=== PATIENT | female | born 1945 | race Caucasian/White ===

== ENCOUNTER 2022-09-05 11:13 | Inpatient (IN) | payer MEDICARE ==
[~2022-09-05] VITALS: Ht 162.6 cm; Wt 40.8 kg
[2022-09-05 12:36] LABS: BASOPHILS # (AUTO) 0.1 (0.0-0.1); BASOPHILS % 0.4 % (0.0-1.0); EOSINOPHILS % 0.1 % (0.0-6.0); HEMATOCRIT 38.9 % (34.2-44.1); HEMOGLOBIN 12.4 g/dL (12.0-16.0); LYMPHOCYTES # (AUTO) 1.5 (1.0-3.2); LYMPHOCYTES % 6.8 % (18.0-39.1); MEAN CORPUSCULAR HEMOGLOBIN 31.8 pg (28-32); MEAN CORPUSCULAR HGB CONC 31.9 g/dL (31-35); MEAN CORPUSCULAR VOLUME 99.7 fL (81-99); MONOCYTES % 4.4 % (4.4-11.3); NEUTROPHILS % 87.9 % (38.7-80.0); PLATELET COUNT 396 x10e3/uL (140-360); RED CELL DISTRIBUTION WIDTH 14.2 % (11.7-14.4)
[2022-09-05 12:51] LABS: CLARITY,URINE SL CLOUDY (CLEAR); COLOR,URINE YELLOW (YELLOW); KETONES,URINE TRACE (NEGATIVE); LEUKOCYTE ESTERASE ,URINE NEGATIVE (NEGATIVE); NITRITE,URINE NEGATIVE (NEGATIVE); PROTEIN,URINE DIPSTICK 1+ (NEGATIVE); URINE UROBILINOGEN 1 mg/dL (0.2 - 1)
[2022-09-05 12:58] LABS: ALBUMIN 3.3 g/dL (3.5-5.0); ALBUMIN/GLOBULIN RATIO 0.7 (0.8-2.0); CALCIUM 10.1 mg/dL (8.4-10.2); CREATININE, SERUM 0.7 mg/dL (0.57-1.11)
[2022-09-05 13:09] LABS: BACTERIA,URINE FEW /HPF; EPITHELIAL CELLS,URINE MODERATE /LPF
[2022-09-05] MEDS ORDERED: SODIUM CHLORIDE 0.9% 1000ML 1,000 ML IV SCH (13:45)
[2022-09-05] MEDS ORDERED: LEVOFLOXACIN 750MG/D5W 150ML 150 ML IV SCH (14:00)
[2022-09-05] MEDS: SODIUM CHLORIDE 0.9% 1000ML 1,000 ML IV SCH (15:24)
[2022-09-05 16:00] VITALS: BP 103/64
[2022-09-05 16:09] VITALS: BP 103/64
[2022-09-05] MEDS ORDERED: SYNTHROID50 MCG PO (18:13)
[2022-09-05] MEDS ORDERED: VITAMIN D350 MCG PO (18:13)
[2022-09-05] MEDS ORDERED: NAMENDA10 MG PO (18:13)
[2022-09-05] MEDS ORDERED: FLINTSTONES CO1 EACH PO (18:13)
[2022-09-05] MEDS ORDERED: BIOTIN2500 MCG PO (18:13)
[2022-09-05] MEDS ORDERED: REMERON30 MG PO (18:13)
[2022-09-05] MEDS ORDERED: FLORASTOR250 MG PO (18:13)
[2022-09-05] MEDS ORDERED: [UNRECOGNIZED DRUG - OTHER] PO (18:13)
[2022-09-05] MEDS ORDERED: ACETAMINOPHEN 325 MG TAB PO PRN (18:30)
[2022-09-05] MEDS ORDERED: ONDANSETRON HCL INJ 2MG/ML 2ML 2 MG/ML VIAL IV PRN (18:30)
[2022-09-05] MEDS ORDERED: BENZONATATE 100 MG CAP PO PRN (18:30)
[2022-09-05] MEDS ORDERED: ALBUTEROL/IPRATROPIUM 3 ML NEB NEB PRN (18:30)
[2022-09-05 20:00] VITALS: BP 126/67
[2022-09-05] MEDS: MIRTAZAPINE 15 MG TAB PO SCH (22:33)
[2022-09-06] VITALS (7 sets, daily range): BP systolic 104–119; BP diastolic 47–58
[2022-09-06] MEDS: SODIUM CHLORIDE 0.9% 1000ML 1,000 ML IV SCH ×2 (01:54→14:25)
[2022-09-06 06:15] LABS: BASOPHILS % 0.2 % (0.0-1.0); EOSINOPHILS % 0.1 % (0.0-6.0); HEMATOCRIT 29.9 % (34.2-44.1); HEMOGLOBIN 9.7 g/dL (12.0-16.0); LYMPHOCYTES # (AUTO) 1.7 (1.0-3.2); LYMPHOCYTES % 9.9 % (18.0-39.1); MEAN CORPUSCULAR HEMOGLOBIN 31.8 pg (28-32); MEAN CORPUSCULAR HGB CONC 32.4 g/dL (31-35); MONOCYTES # (AUTO) 0.8 (0.2-0.8); MONOCYTES % 4.9 % (4.4-11.3); NEUTROPHILS # (AUTO) 14.4 (2.1-6.9); NEUTROPHILS % 84.4 % (38.7-80.0); PLATELET COUNT 340 x10e3/uL (140-360); RED BLOOD COUNT 3.05 x10e6/uL (3.6-5.1); RED CELL DISTRIBUTION WIDTH 14.1 % (11.7-14.4)
[2022-09-06 06:40] LABS: ANION GAP 14.4 mmol/L (8-16); CALCIUM 8.8 mg/dL (8.4-10.2); POTASSIUM 3.4 mmol/L (3.5-5.1)
[2022-09-06 06:58] LABS: CREATININE, SERUM 0.6 mg/dL (0.57-1.11)
[2022-09-06] MEDS: MEMANTINE 10 MG TAB PO SCH ×2 (09:04→16:35)
[2022-09-06] MEDS ORDERED: IOPAMIDOL 370 MG/ML 100 ML INFUS..BTL INJ ONE (10:33)
[2022-09-06] MEDS: [UNRECOGNIZED DRUG - OTHER] PO SCH ×2 (12:00→16:35)
[2022-09-06] MEDS: LEVOTHYROXINE SODIUM 50 MCG TAB PO SCH (19:25)
[2022-09-06] MEDS: METRONIDAZOLE 500MG/NS 100ML 100 ML IV SCH (20:29)
[2022-09-06] MEDS: MIRTAZAPINE 15 MG TAB PO SCH (20:40)
[2022-09-07] VITALS (10 sets, daily range): BP systolic 107–148; BP diastolic 50–78
[2022-09-07] MEDS: LEVOTHYROXINE SODIUM 50 MCG TAB PO SCH (05:08)
[2022-09-07] MEDS: SODIUM CHLORIDE 0.9% 1000ML 1,000 ML IV SCH ×2 (05:08→18:28)
[2022-09-07] MEDS: METRONIDAZOLE 500MG/NS 100ML 100 ML IV SCH ×3 (05:08→18:28)
[2022-09-07 05:47] LABS: BASOPHILS # (AUTO) 0.1 (0.0-0.1); BASOPHILS % 0.3 % (0.0-1.0); EOSINOPHILS % 0.1 % (0.0-6.0); HEMATOCRIT 31.4 % (34.2-44.1); HEMOGLOBIN 10.2 g/dL (12.0-16.0); LYMPHOCYTES # (AUTO) 1.4 (1.0-3.2); LYMPHOCYTES % 7.2 % (18.0-39.1); MEAN CORPUSCULAR HEMOGLOBIN 31.9 pg (28-32); MEAN CORPUSCULAR HGB CONC 32.5 g/dL (31-35); MEAN CORPUSCULAR VOLUME 98.1 fL (81-99); MONOCYTES % 4.9 % (4.4-11.3); NEUTROPHILS # (AUTO) 16.9 (2.1-6.9); NEUTROPHILS % 86.6 % (38.7-80.0); PLATELET COUNT 359 x10e3/uL (140-360); RED CELL DISTRIBUTION WIDTH 14.1 % (11.7-14.4)
[2022-09-07 06:09] LABS: ANION GAP 12.2 mmol/L (8-16); CALCIUM 8.8 mg/dL (8.4-10.2); CREATININE, SERUM 0.58 mg/dL (0.57-1.11); POTASSIUM 3.2 mmol/L (3.5-5.1)
[2022-09-07 06:20] LABS: THYROID STIMULATING HORMONE 0.972 uIU/mL (0.350-4.940)
[2022-09-07] MEDS: [UNRECOGNIZED DRUG - OTHER] PO SCH ×3 (08:00→17:00)
[2022-09-07] MEDS: MEMANTINE 10 MG TAB PO SCH ×2 (09:04→17:00)
[2022-09-07] MEDS: BALSAM PERU/CASTOR OIL 60 GM OINT...G. TP SCH (09:05)
[2022-09-07] MEDS ORDERED: ONDANSETRON HCL 4 MG ORAL DISINTEGRATING TAB PO PRN (13:45)
[2022-09-07] MEDS: MIRTAZAPINE 15 MG TAB PO SCH (21:00)
[2022-09-08 01:05] VITALS: BP 105/57
[2022-09-08] MEDS: METRONIDAZOLE 500MG/NS 100ML 100 ML IV SCH ×2 (01:57→10:01)
[2022-09-08 04:23] VITALS: BP 114/71
[2022-09-08 05:34] LABS: ANION GAP 14.6 mmol/L (8-16); CREATININE, SERUM 0.61 mg/dL (0.57-1.11); POTASSIUM 3.6 mmol/L (3.5-5.1)
[2022-09-08 05:44] LABS: BASOPHILS # (AUTO) 0.1 (0.0-0.1); BASOPHILS % 0.3 % (0.0-1.0); EOSINOPHILS % 0.2 % (0.0-6.0); HEMATOCRIT 34.2 % (34.2-44.1); HEMOGLOBIN 10.9 g/dL (12.0-16.0); LYMPHOCYTES % 5.3 % (18.0-39.1); MEAN CORPUSCULAR HEMOGLOBIN 31.5 pg (28-32); MEAN CORPUSCULAR HGB CONC 31.9 g/dL (31-35); MEAN CORPUSCULAR VOLUME 98.8 fL (81-99); MONOCYTES # (AUTO) 0.8 (0.2-0.8); MONOCYTES % 4.3 % (4.4-11.3); NEUTROPHILS # (AUTO) 17.5 (2.1-6.9); NEUTROPHILS % 89.4 % (38.7-80.0); PLATELET COUNT 371 x10e3/uL (140-360); RED BLOOD COUNT 3.46 x10e6/uL (3.6-5.1); RED CELL DISTRIBUTION WIDTH 14.2 % (11.7-14.4)
[2022-09-08] MEDS: LEVOTHYROXINE SODIUM 50 MCG TAB PO SCH (06:15)
[2022-09-08] MEDS: SODIUM CHLORIDE 0.9% 1000ML 1,000 ML IV SCH ×2 (06:15→16:38)
[2022-09-08 08:05] VITALS: BP 138/86
[2022-09-08] MEDS: MEMANTINE 10 MG TAB PO SCH ×2 (09:00→16:37)
[2022-09-08] MEDS ORDERED: MORPHINE SULFATE ORAL SOLN 10 MG/5 ML UDC PO PRN (09:00)
[2022-09-08] MEDS ORDERED: FENTANYL 25 MCG/HR PATCH TOP SCH (09:30)
[2022-09-08] MEDS: BALSAM PERU/CASTOR OIL 60 GM OINT...G. TP SCH (09:51)
[2022-09-08] MEDS: [UNRECOGNIZED DRUG - OTHER] PO SCH ×3 (10:00→16:37)
[2022-09-08 11:22] VITALS: BP 130/81
[2022-09-08 14:20] VITALS: BP 130/81
[2022-09-08 15:21] VITALS: BP 118/61
== END 2022-09-08 17:10 | disposition hospice, home (50) | DRG 194 ==
LOC: ER 11:19 → ERHOLD 13:37 → MED/SURG3 16:05 → OBSVTOIN 09-06 09:08
PROVIDERS: ADMIT Internal Medicine; ATTEND Internal Medicine
DX: J18.9 Pneumonia, unspecified organism (principal); F02.82 Dementia in other diseases classified elsewhere, unspecified severity, with psychotic disturbance; F05 Delirium due to known physiological condition; Z68.1 Body mass index [BMI] 19.9 or less, adult; R64 Cachexia; G30.9 Alzheimer's disease, unspecified; Z88.5 Allergy status to narcotic agent; Z88.0 Allergy status to penicillin; Z88.8 Allergy status to other drugs, medicaments and biological substances; Z85.810 Personal history of malignant neoplasm of tongue; E03.9 Hypothyroidism, unspecified; R62.7 Adult failure to thrive; Z79.52 Long term (current) use of systemic steroids; Z79.899 Other long term (current) drug therapy
CPT/HCPCS: 36415; 51700; 70450; 71045; 71260; 74177; 74230; 80048; 80053; 81001; 82607; 82746; 83540; 83605; 84443; 84466; 84484; 85025; 87040; 87070; 87205; 87400; 93005; 94799; 96361; 99251; 99285; G0378; J0456; J7030; J7050; Q9967